=== PATIENT | male | born 1935 | race Caucasian/White ===

== ENCOUNTER 2018-09-20 08:38 | Emergency (ER) | payer MEDICARE, BC ==
--- NOTE | 2018-09-20 08:55 | Emergency Department Record ---
History of Present Illness - General Chief complaint: Weakness Stated complaint: WEAKNESS Time Seen by Provider: 09/20/18 08:44 Source: Patient, RN notes reviewed - History of Present Illness Initial comments: patient has a cough and wheezing for 4 days and sob and fell down three times because weak and complaining of low back pain. Patient just moved here from [place] one month ago and he is living with his daughter. 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 History of COPD and CADwith CABG 2009 and atrial fib and on eliquis BID. Patient denies hitting his head with his falls. Pulse ox on room air 85% and he doesn't use oxygen MD Complaint: Generalized weakness Associated Symptoms: Shortness of breath, Other (cough) - [place] Coma Scale Eye Response: (4) Open spontaneously Motor Response: (6) Obeys commands Verbal Response: (5) Oriented Jessica Total: 15 - Related Data Home Medications Medication Instructions Recorded Confirmed Last Taken Apixaban [Eliquis] 5 mg PO BID 09/20/18 09/20/18 09/20/18 Aspirin [Aspir-Low] 81 mg PO DAILY 09/20/18 09/20/18 09/19/18 Bumetanide 0.5 mg PO DAILY 09/20/18 09/20/18 09/20/18 Carvedilol [Coreg] 6.25 mg PO BID 09/20/18 09/20/18 09/20/18 Fluticasone/Salmeterol 500/50 2 puff INH BID 09/20/18 09/20/18 09/20/18 [Advair 500/50] Ipratropium/Albuterol [Duoneb] 3 ml IH BID 09/20/18 09/20/18 09/20/18 Montelukast Sodium 10 mg PO QHS 09/20/18 09/20/18 09/19/18 Omeprazole 40 mg PO DAILY 09/20/18 09/20/18 09/20/18 Prednisone 6 mg PO DAILY 09/20/18 09/20/18 09/20/18 Simvastatin 40 mg PO QHS 09/20/18 09/20/18 09/19/18 Allergies Allergy/AdvReac Type Severity Reaction Status Date / Time Iodinated Contrast- Oral and Allergy HYPERSENSIT Verified 09/20/18 10:01 IV Dye IVITY Review of Systems Reviewed: No additional complaints except as noted below Constitutional: Reports: As per HPI, Weakness. Denies: Chills, Fever, Malaise, Night sweats, Weight change Eyes: Reports: As per HPI. Denies: Eye discharge, Eye pain, Photophobia, Vision change ENT: Reports: As per HPI, Congestion. Denies: Dental pain, Ear pain, Epistaxis, Hearing loss, Throat pain Respiratory: Reports: As per HPI, Cough, Wheezes. Denies: Dyspnea, Hemoptysis, Stridor Cardiovascular: Reports: As per HPI. Denies: Arrhythmia, Chest pain, Dyspnea on exertion, Edema, Murmurs, Orthopnea, Palpitations, Paroxysmal nocturnal dyspnea, Rheumatic Fever, Syncope Endocrine: Reports: As per HPI. Denies: Fatigue, Heat or cold intolerance, Polydipsia, Polyuria Gastrointestinal: Reports: As per HPI. Denies: Abdominal pain, Constipation, Diarrhea, Hematemesis, Hematochezia, Melena, Nausea, Vomiting Genitourinary: Reports: As per HPI. Denies: Dysuria, Frequency, Hematuria, Incontinence, Retention, Testicular pain, Testicular mass, Urgency Musculoskeletal: Reports: As per HPI. Denies: Arthralgia, Back pain, Gout, Joint swelling, Myalgia, Neck pain Skin: Reports: As per HPI. Denies: Bruising, Change in color, Change in hair/nails, Lesions, Pruritus, Rash Neurological: Reports: As per HPI. Denies: Abnormal gait, Confusion, Headache, Numbness, Paresthesias, Seizure, Tingling, Tremors, Vertigo, Weakness Psychiatric: Reports: As per HPI. Denies: Anxiety, Auditory hallucinations, Depression, Homicidal thoughts, Suicidal thoughts, Visual hallucinations Hematological/Lymphatic: Reports: As per HPI. Denies: Anemia, Blood Clots, Easy bleeding, Easy bruising, Swollen glands Physical Exam - General General Appearance: Alert, Oriented x3, Cooperative, Mild distress - Head Head exam: Normal inspection - Eye Eye exam: Normal appearance, PERRL Pupils: Normal accommodation - ENT ENT exam: Normal exam, Mucous membranes moist, Normal external ear exam, Normal orophraynx, TM's normal bilaterally Ear exam: Normal external inspection. negative: External canal tenderness Nasal Exam: Normal inspection. negative: Discharge, Sinus tenderness Mouth exam: Normal external inspection, Tongue normal Teeth exam: Normal inspection. negative: Dental caries Throat exam: Normal inspection. negative: Tonsillar erythema, Tonsillar exudate - Neck Neck exam: Normal inspection, Full ROM. negative: Tenderness - Respiratory Respiratory exam: Wheezes. negative: Respiratory distress - Cardiovascular Cardiovascular Exam: Regular rate, Normal rhythm, Normal heart sounds - GI/Abdominal GI/Abdominal exam: Soft, Normal bowel sounds. negative: Tenderness - Rectal Rectal exam: Deferred - exam: Deferred - Extremities Extremities exam: Normal inspection, Full ROM, Normal capillary refill. negative: Tenderness - Back Back exam: Reports: Normal inspection, Full ROM. Denies: Muscle spasm, Rash noted, Tenderness - Neurological Neurological exam: Alert, Normal gait, Oriented X3, Reflexes normal - Psychiatric Psychiatric exam: Normal affect, Normal mood - Skin Skin exam: Dry, Intact, Normal color, Warm Course - Reevaluation(s) Reevaluation #1: pulse ox 93% with 3 liters of oxygen 09/20/18 09:09 Reevaluation #2: BP improved after Normal saline 300 ml, 110/70 and went back to a saline lock 09/20/18 11:50 09/20/18 11:51 Reevaluation #3: Discussed case with Dr Chavez and will transfer to [facility] 09/20/18 12:39 Reevaluation #4: transfer to [facility] hypoxia and troponin I in the indeterminate range 09/20/18 12:42 Medical Decision Making - Data Complexity MDM Data: Labs Ordered and/or Reviewed (hg 9.7, trop i elevated indeterminate), X-Ray Ordered and/or Reviewed (chest xray cardiomegaly and pulmomary congestion ,interstitual changes , CT head negative and lumbar spine l4 compression and sacral fracture), EKG Ordered and/or Reviewed (sinus rhythm and LBBB) - Lab Data Result diagrams: 09/20/18 09:20 09/20/18 09:20 Disposition Clinical Impression: Hypoxia, COPD (chronic obstructive pulmonary disease) with acute bronchitis, Elevated troponin I level Anemia Qualifiers: Anemia type: unspecified type Qualified Code(s): D64.9 - Anemia, unspecified Fall Qualifiers: Encounter type: initial encounter Qualified Code(s): W19.XXXA - Unspecified fa ll, initial encounter Lumbar compression fracture Qualifiers: Encounter type: initial encounter Lumbar vertebra fracture level: L4 Qualified Code(s): S32.040A - Wedge compression fracture of fourth lumbar vertebra, initial encounter for closed fracture Sacral fracture, closed Qualifiers: Encounter type: initial encounter Zone of sacrum fracture: unspecified portion of sacrum Qualified Code(s): S32.10XA - Unspecified fracture of sacrum, initial encounter for closed fracture Disposition: Acute Care Hospital Transfer Condition: (2) Stable Forms: Patient Portal Access Time of Disposition: 12:48 Quality - Quality Measures Quality Measures: N/A - Blood Pressure Screening Does Patient Have Any of the Following: No Blood Pressure Classification: Normal BP Reading Systolic Measurement: 107 Diastolic Measurement: 58 Screening for High Blood Pressure: < Normal BP, F/U Not Required > [G8783]
[2018-09-20] MEDS ORDERED: ASPIRIN 81 MG CHEWABLE TABLET PO ONE (08:59)
[2018-09-20] MEDS ORDERED: IPRATROPIUM/ALBUTEROL (0.5MG/3MG) NEB INH ONE (09:02)
[2018-09-20] MEDS ORDERED: METHYLPREDNISOLONE PF 125MG/VIAL IVP ONE (09:08)
[2018-09-20 09:33] LABS: ABSOLUTE NEUTROPHIL COUNT 10.73; HEMATOCRIT 31.7 % (42.0-52.0); HEMOGLOBIN 9.7 gm/dl (14.0-18.0); MEAN CELL VOLUME 91.9 fl (81-97); MEAN CORPUSCULAR HEMOGLOBIN 28.1 pg (27-33); MEAN CORPUSCULAR HGB CONC 30.6 g/dl (32-36); MEAN PLATELET VOLUME 9.7 fl (7.4-10.4); PLATELET COUNT 207 K/uL (130-400); RED BLOOD COUNT 3.45 M/uL (4.40-5.70); RED CELL DISTRIBUTION WIDTH 14.9 % (11.5-14.5)
[2018-09-20 09:44] LABS: CREATININE 1.7 mg/dL (0.7-1.2)
[2018-09-20 09:45] LABS: INR 1.2; PROTHROMBIN TIME (PATIENT) 12.3 SECONDS (9.5-12.1)
[2018-09-20 09:47] LABS: HYPOCHROMIA 1+; PLATELET ESTIMATE NORMAL (NORMAL)
[2018-09-20] MEDS ORDERED: 0.9 % SODIUM CHLORIDE 1000ML 1,000 ML IV ONE (10:34)
[2018-09-20] MEDS ORDERED: CEFTRIAXONE SODIUM 2 GM in 0.9 % SODIUM CHLORIDE 100ML 100 ML IVPB ONE (11:36)
--- NOTE | 2018-09-21 11:49 | RADIOLOGY REPORT ---
EXAM: CHEST, TWO VIEWS HISTORY: WORSENING DIFFICULTY IN BREATHING. WEAKNESS. TECHNIQUE: Semi-erect AP and lateral views of the chest were obtained. Comparison: None. FINDINGS: Post median sternotomy changes are identified. Surgical clips are also demonstrated within the right neck. The heart projects near the upper limits of normal in size. The thoracic aorta is tortuous and atherosclerotic. Mild pulmonary venous hypertension is suspected. Mixed primarily reticular opacities are scattered in each lung most pronounced at the mid to lower levels. This may just relate to chronic interstitial change though an acute abnormality such as interstitial edema or atypical inflammation would be difficult to exclude. The posterior costophrenic angles are ill defined with small effusions possible. There are degenerative changes scattered throughout the visualized spine. There is mild to moderate wedge deformity of a vertebral body near the thoracolumbar junction. Vertebroplasty changes are also identified within a lumbar vertebral body. There is apparent sclerosis involving the subchondral left humeral head. Avascular necrosis would be difficult to exclude. The articular surface is, however, intact. IMPRESSION: 1. NO PRIOR EXAMINATION AVAILABLE FOR COMPARISON. 2. POST MEDIAN STERNOTOMY. 3. THE HEART PROJECTS BORDERLINE TO MILDLY ENLARGED AND THERE IS QUESTIONABLE BORDERLINE TO MILD PULMONARY VENOUS HYPERTENSION. 4. MIXED PRIMARILY RETICULAR OPACITIES SCATTERED IN EACH LUNG MOST PRONOUNCED IN THE BASES, DISCUSSED ABOVE. 5. THE POSTERIOR COSTOPHRENIC ANGLES ARE SOMEWHAT ILL DEFINED WITH SMALL EFFUSIONS POSSIBLE. 6. DEGENERATIVE CHANGES SCATTERED THROUGHOUT THE VISUALIZED SPINE AND SHOULDER GIRDLES. 7. SCLEROSIS INVOLVING THE SUBCHONDRAL LEFT HUMERAL HEAD. AVASCULAR NECROSIS IS NOT EXCLUDED. 8. POST SURGICAL CHANGES WITHIN THE RIGHT NECK. ATHEROSCLEROTIC CALCIFICATION SUGGESTED AT THE LEVEL OF THE LEFT CAROTID BIFURCATION. JOB NUMBER: [id number] [facility]
--- NOTE | 2018-09-21 19:12 | RADIOLOGY REPORT ---
EXAM: LUMBAR SPINE / AP LAT HISTORY: BACK PAIN POST FALL. TECHNIQUE: AP and lateral views of the lumbar spine are obtained as well as spot lateral views of the thoracolumbar and lumbosacral junctions. COMPARISON: Same-day two views of the chest. Two views of the abdomen dated 04/06/2010. FINDINGS: Diffuse osteopenia limits evaluation. There are five [id number] lumbar-type vertebrae. Bone cement is demonstrated within a mildly compressed L2 vertebral body. There is mild anterior wedging of L4 involving the superior endplate. This is age-indeterminate, though probably chronic. There is age indeterminate, though likely chronic, mild to moderate superior endplate compression deformity of T12. The vertebral bodies are otherwise normal in alignment and height. No definite acute osseous fracture, nor definite lytic/blastic bone lesion. There are primarily mild degenerative disc/endplate changes throughout the visualized spine with anterior bridging marginal osteophytes involving the lower thoracic and upper lumbar levels. There are mild to moderate degenerative changes of the facet joints, most pronounced inferiorly. There are mild degenerative changes of the hips. Surgical clips are noted at the level of the central pelvis. There is diffuse atherosclerosis of the abdominal aorta without focal aneurysmal dilatation. Surgical clips are noted in the right upper quadrant of the abdomen. IMPRESSION: 1. DIFFUSE OSTEOPENIA LIMITS EVALUATION. 2. VERTEBROPLASTY CHANGES WITHIN A MILDLY COMPRESSED L2 VERTEBRAL BODY. 3. AGE-INDETERMINATE, THOUGH LIKELY CHRONIC, COMPRESSION DEFORMITIES OF T12 AND L4. 4. NO DEFINITE ACUTE FRACTURE NOR SUBLUXATION. 5. MULTILEVEL DEGENERATIVE CHANGES. 6. NOT MENTIONED ABOVE IS EQUIVOCAL SUBLUXATION INVOLVING THE S4 AND S5 SEGMENTS. THIS MAY BE DEVELOPMENTAL, THOUGH ACUTE INJURY WOULD BE DIFFICULT TO EXCLUDE. JOB NUMBER: [id number] [facility]
--- NOTE | 2018-09-21 19:27 | CT SCAN REPORT ---
EXAM: CT SCAN HEAD WO CONTRAST HISTORY: MULTIPLE FALLS. BUMP AT TOP OF HEAD. TECHNIQUE: Routine noncontrast CT examination of the head. COMPARISON: None. FINDINGS: There is moderate dilatation of the subarachnoid spaces associated with mild ventriculomegaly consistent with generalized atrophy. Moderate periventricular and subcortical white matter lucencies are scattered in each cerebral hemisphere. These are nonspecific but likely areas of chronic small vessel ischemia. Old white matter infarcts are also suggested in the subcortical right frontal lobe and high subcortical left frontoparietal region. Benign bilateral basal ganglia calcification is present. No other area of abnormally increased or decreased attenuation is noted throughout the brain substance. No abnormal extraaxial fluid collection. No skull fracture. There is mild superior frontal scalp swelling near the midline. There is mucosal thickening scattered throughout multiple paranasal sinuses consistent with mild chronic sinusitis. A right mastoidectomy defect is present. There is prominent presumed cerumen within the right external auditory canal. Postcataract surgery changes are noted bilaterally. The orbits as visualized are otherwise unremarkable. There is atherosclerotic calcification of the distal vertebral arteries and distal internal carotid arteries. IMPRESSION: 1. NO CT EVIDENCE OF ACUTE MAJOR VESSEL INFARCT, INTRACRANIAL HEMORRHAGE, MASS, NOR SKULL FRACTURE. 2. GENERALIZED ATROPHY WITH MILD VENTRICULOMEGALY. 3. MODERATE WHITE MATTER LUCENCIES SCATTERED IN EACH CEREBRAL HEMISPHERE. THESE ARE NONSPECIFIC BUT LIKELY AREAS OF CHRONIC SMALL VESSEL ISCHEMIA. NOT MENTIONED ABOVE IS A PROMINENT PERIVASCULAR SPACE VS. OLD LACUNAR INFARCT IN THE LEFT THALAMUS. 4. OLD SUBCORTICAL WHITE MATTER INFARCTS WITHIN THE RIGHT FRONTAL LOBE AND SUPERIOR LEFT FRONTOPARIETAL REGION. 5. POST RIGHT MASTOIDECTOMY CHANGES. 6. CHRONIC INFLAMMATORY CHANGES SCATTERED THROUGHOUT MULTIPLE PARANASAL SINUSES. JOB NUMBER: [id number] [facility]
== END 2018-09-20 13:51 | disposition short-term general hospital (02) ==
LOC: ER 08:38
DX: S32.040A Wedge compression fracture of fourth lumbar vertebra, initial encounter for closed fracture (principal); S32.10XA Unspecified fracture of sacrum, initial encounter for closed fracture; R79.89 Other specified abnormal findings of blood chemistry; J44.0 Chronic obstructive pulmonary disease with (acute) lower respiratory infection; J20.9 Acute bronchitis, unspecified; J44.1 Chronic obstructive pulmonary disease with (acute) exacerbation; R09.02 Hypoxemia; M54.5 Low back pain; I48.91 Unspecified atrial fibrillation; Z79.01 Long term (current) use of anticoagulants; I69.351 Hemiplegia and hemiparesis following cerebral infarction affecting right dominant side; I25.10 Atherosclerotic heart disease of native coronary artery without angina pectoris; W19.XXXA Unspecified fall, initial encounter
CPT/HCPCS: 70450; 71046; 72100; 80048; 84484; 85027; 85610; 85730; 93005; 93010; 94640; 96365; 96375; 99285; J2930

== ENCOUNTER 2019-05-22 13:17 | Emergency (ER) | payer MEDICARE, BC ==
[2019-05-22] MEDS ORDERED: CEFDINIR 300 MG CAPSULE PO ONE (13:41)
[2019-05-22] MEDS ORDERED: AZITHROMYCIN 500 MG TABLET PO ONE (13:41)
--- NOTE | 2019-05-22 13:47 | Emergency Department Record ---
History of Present Illness - General Chief Complaint: Shortness of breath Stated Complaint: DESI Time Seen by Provider: 05/22/19 13:41 Source: Patient, Family Mode of Arrival: Ambulatory Limitations: No limitations - History of Present Illness Initial Comments: 84 yo male presents with a cough for about 3 weeks. He denies any fever. He is not short of breath. No nausea, vomiting or diarrhea. 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 He states his sputum is mild. He was 99-100% on RA at triage. He does prednisone and albuterol at home. He declined the need for any breathing treatments at this time. No edema of the legs. He was on an antibiotic about 6 weeks ago and got better but then it returned 2-3 weeks ago. Normal appetite. MD Complaint: Cough Onset/Timin -: Month(s) Quality: Other Consistency: Constant Improves With: Nothing Worsens With: Nothing Context: Recent URI Associated Symptoms: Cough Treatments Prior to Arrival: None - Related Data Home Oxygen Therapy: No Previous Rx's Medication Instructions Recorded Azithromycin [Zithromax] 250 mg PO DAILY #4 tab 05/22/19 Cefdinir 300 mg PO BID #14 capsule 05/22/19 Allergies Allergy/AdvReac Type Severity Reaction Status Date / Time Iodinated Contrast Media Allergy HYPERSENSIT Unverified 05/22/19 12:54 [Iodinated Contrast- Oral IVITY and IV Dye] Travel Screening - Travel/Exposure Within Last 30 Days Have you traveled within the last 30 days?: No Review of Systems Constitutional: Denies: Chills, Fever, Malaise, Weakness Eyes: Denies: Eye discharge ENT: Reports: Congestion. Denies: Ear pain, Epistaxis, Throat pain Respiratory: Reports: Cough, Wheezes. Denies: Dyspnea, Hemoptysis, Stridor Cardiovascular: Denies: Chest pain, Palpitations, Syncope Endocrine: Denies: Fatigue Gastrointestinal: Denies: Abdominal pain, Diarrhea, Nausea, Vomiting Genitourinary: Denies: Dysuria, Frequency, Hematuria Musculoskeletal: Denies: Arthralgia, Back pain, Joint swelling, Myalgia Skin: Denies: Bruising, Change in color, Rash Neurological: Denies: Headache, Numbness, Weakness Psychiatric: Denies: Anxiety Hematological/Lymphatic: Denies: Easy bleeding, Easy bruising Past Medical History - SOCIAL HISTORY Smoking Status: Current every day smoker - RESPIRATORY Hx Respiratory Disorders: Yes Hx Asthma: Yes (industrial asthma) - CARDIOVASCULAR Hx Cardio Disorders: Yes Hx Heart Attack: Yes Hx Irregular Heartbeat: Yes (Afib) - NEURO Hx Neuro Disorders: Yes Hx CVA: Yes (x3) - GI Hx GI Disorders: Yes Comment:: colon removed - Hx Genitourinary Disorders: No - ENDOCRINE Hx Endocrine Disorders: No - MUSCULOSKELETAL Hx Musculoskeletal Disorders: No - PSYCH Hx Psych Problems: No - HEMATOLOGY/ONCOLOGY Hx Hematology/Oncology Disorders: No Family Medical History Any Significant Family History?: No Physical Exam - General General Appearance: Alert, Oriented x3, Cooperative, No acute distress, Other (No distress, appears comfortable) Limitations: No limitations - Head Head exam: Atraumatic, Normal inspection - Eye Eye exam: Normal appearance, PERRL. negative: Conjunctival injection, Scleral icterus - ENT ENT exam: Normal exam Ear exam: Normal external inspection Nasal Exam: Normal inspection Mouth exam: Normal external inspection - Neck Neck exam: Normal inspection. negative: Tenderness - Respiratory Respiratory exam: Decreased breath sounds, Wheezes (mild expiratory, normal work of breathing, non labored). negative: Normal lung sounds bilaterally, Accessory muscle use, Prolonged expiratory, Respiratory distress, Rhonchi - Cardiovascular Cardiovascular Exam: Regular rate, Normal rhythm, Normal heart sounds - GI/Abdominal GI/Abdominal exam: Soft. negative: Tenderness - Rectal Rectal exam: Deferred - exam: Deferred - Extremities Extremities exam: negative: Calf tenderness, Pedal edema, Tenderness - Back Back exam: Denies: CVA tenderness (R), CVA tenderness (L) - Neurological Neurological exam: Alert, Oriented X3 - Psychiatric Psychiatric exam: Normal affect, Normal mood - Skin Skin exam: Dry, Intact, Normal color, Warm Course Vital Signs 05/22/19 13:21 Temperature 97.5 F L Pulse Rate 74 Respiratory 24 Rate Blood Pressure 123/47 Pulse Ox 99 - Reevaluation(s) Reevaluation #1: 05/22/19 13:46 The patient is 99-100% on room air. He is non labored. He has mild expiratory wheeze I offered a breathing treatment. He declined. He feels comfortable and does not require one at this time 05/22/19 14:23 The CXR was reviewed No acute infiltrate. No changes from the prior in April He is comfortable, no fever, no hypoxia He will be treated for his productive cough He daughter will increase his steroid for the next 5 days as well We discussed reasons to return to the ED for a recheck as well if he is not improving and to immediately return if worse. 05/22/19 14:51 CXR report reviewed. Coarse interstitial markings, otherwise negative. Non tender first rib. Disposition Disposition: Discharge Clinical Impression: Asthmatic bronchitis Qualifiers: Asthma severity: unspecified severity Asthma complication type: uncomplicated Disposition: Home, Self-Care Condition: (1) Good Instructions: Acute Bronchitis (ED) Additional Instructions: Review this ER visit and the tests performed with your family doctor Call your doctor for the next available follow up appointment Return to the ER for a recheck immediately if worse, any new concerns or questions Take the prescriptions provided as directed Prescriptions: Cefdinir 300 mg PO BID #14 capsule Azithromycin [Zithromax] 250 mg PO DAILY #4 tab Forms: Patient Portal Access Time of Disposition: 14:25 Quality - Quality Measures Quality Measures: N/A - Blood Pressure Screening Does Patient Have Any of the Following: No Blood Pressure Classification: Pre-Hypertensive BP Reading Systolic Measurement: 123 Diastolic Measurement: 47 Screening for High Blood Pressure: < Pre-Hypertensive BP, F/U Documented > [G8950] Pre-Hypertensive Follow-up Interventions: Referral to alternative/primary care provider.
--- NOTE | 2019-05-22 14:46 | RADIOLOGY REPORT ---
EXAMINATION: Two View Chest Radiographs EXAM DATE: 05/22/2019 2:23 PM TECHNIQUE: Frontal and lateral views INDICATION: cough about 2-3 weeks COMPARISON: April 17, 2019 ENCOUNTER: Not applicable FINDINGS: The heart, mediastinum, and pulmonary vasculature are stable. Sternotomy wires as previously. Pulmona ry hyperexpansion. No lung consolidation or pleural effusions are present. Coarse interstitial lung markings diffusely. There appears to be a fracture of the left first rib. Please clinically correlate for point tendernes s. IMPRESSION: Coarse lung markings without focal infiltrate identified Concern for possible fracture of the left first rib. Please clinically correlate for point tenderness . Dictated by: Dariusz Lu MD on 05/22/2019 2:42 PM. .
== END 2019-05-22 14:59 | disposition home or self-care (01) ==
LOC: ER 13:17
DX: J45.909 Unspecified asthma, uncomplicated (principal); F17.210 Nicotine dependence, cigarettes, uncomplicated; I25.2 Old myocardial infarction; Z86.73 Personal history of transient ischemic attack (TIA), and cerebral infarction without residual deficits; I48.91 Unspecified atrial fibrillation
CPT/HCPCS: 99283 ×2; 71046; J3490